=== PATIENT | male | born 1990 ===

== ENCOUNTER → 2021-06-18 | Outpatient (CLI) | payer OTHER ==
--- NOTE | 2021-06-18 14:41 | Diagnostic Imaging Report ---
INDICATION: Injury yesterday. Pain at the tip of the elbow. EXAMINATION: Left elbow, 06/18/2021. FINDINGS: Three views of the elbow. There is mild soft tissue swelling along the posterior aspect of the olecranon process. There is a large spur emanating off of the posterior olecranon with a focal lucency noted suggesting a fracture through the spur. The remaining osseous structures appear intact. There are no dislocations. There is no joint effusion. IMPRESSION: 1. Suspected acute fracture through the spur along the olecranon process. Dictated by: Dictated on workstation # [id number]
== END ==
LOC: RAD 13:51
PROVIDERS: ATTEND Nurse Practitioner Family
DX: S59.902A Unspecified injury of left elbow, initial encounter (principal); X58.XXXA Exposure to other specified factors, initial encounter
CPT/HCPCS: 73080